=== PATIENT | female | born 1960 | race Two or more races ===

== ENCOUNTER 2017-02-07 23:38 | Inpatient (IN) | payer MEDICAID ==
[~2017-02-07] VITALS: Ht 154.9 cm; Wt 71.2 kg
[2017-02-08] VITALS (7 sets, daily range): BP systolic 118–156; BP diastolic 56–74
--- NOTE | 2017-02-08 00:18 | Emergency Room Report ---
History of Present Illness General Chief Complaint: Chest Pain Source: Patient Present Illness HPI 56 yo female with pmhx of HTN, DM, p/w chest pain for 2 hours. Chest pain started while resting. Localized to substernal area, no radiation to back or other areas, sharp in nature, gradual in onset, 1 episode. + SOB. Denies palpitations, diaphoresis, n/v. This is the first occurrence of chest pain. Denies fever, chills, cough, abd pain. Denies trauma. Last stress test was a few years ago which was negative. Patient has never had a cardiac catheterization. Denies smoking, no family history of cardiac disease at a young age. Patient was given 162 mg of aspirin by EMS Allergies: Coded Allergies: No Known Allergies (Unverified , 02/07/17) Patient History Past Medical History: see triage record, DM, HTN Past Surgical History: none Pertinent Family History: none Last Menstrual Period: 2001 Now: No : 6 Para: 6 Reviewed Nursing Documentation: PMH: Agreed, PSxH: Agreed Nursing Documentation-PMH Hx Hypertension: Yes Hx Diabetes: Yes Review of Systems All Other Systems: negative except mentioned in HPI Physical Exam Vital Signs Date Time Temp Pulse Resp B/P (MAP) Pulse Ox O2 Delivery O2 Flow Rate FiO2 02/07/17 23:47 98.4 93 18 171/75 97 Room Air Medical Decision Making Diagnostic Impression: Primary Impression: Acute coronary syndrome ER Course 56 yo F with p/w CP DDX: ACS vs. CHF vs. pneumonia vs. gastritis/GERD vs. pneumothorax PE on differential however at this time there are other more likely diagnoses. Plan: IV access, obtain labs including troponin, EKG, CXR ASA 162 (already given 162 by ems) Anticipate admission ER course: Patient was treated with ASA. Labs- Troponin * Patient has remained on a monitor, HD stable, chest pain improved. Disposition: Patient requires admission for chest pain. HEART Score: *, indicating increased risk of major acute cardiac event. Patient requires admission for further workup, serial troponin, and possible stress test /cath inpatient. Please note that this Emergency Department Report was dictated using [employer] end application developer technology software, occasionally this can lead to erroneous entry secondary to interpretation by the dictation equipment. Laboratory Tests Test 02/08/17 00:05 White Blood Count 9.4 K/UL (4.8-10.8) Red Blood Count 3.90 M/UL (4.20-5.40) L Hemoglobin 12.3 G/DL (12.0-16.0) Hematocrit 35.6 % (37.0-47.0) L Mean Corpuscular Volume 91 FL (80-99) Mean Corpuscular Hemoglobin 31.5 PG (27.0-31.0) H Mean Corpuscular Hemoglobin Concent 34.5 G/DL (32.0-36.0) Red Cell Distribution Width 11.4 % (11.6-14.8) L Platelet Count 237 K/UL (150-450) Mean Platelet Volume 7.7 FL (6.5-10.1) Neutrophils (%) (Auto) 41.5 % (45.0-75.0) L Lymphocytes (%) (Auto) 45.2 % (20.0-45.0) H Monocytes (%) (Auto) 9.7 % (1.0-10.0) Eosinophils (%) (Auto) 2.5 % (0.0-3.0) Basophils (%) (Auto) 1.2 % (0.0-2.0) Sodium Level 132 mEQ/L (135-145) L Potassium Level 3.8 mEQ/L (3.4-4.9) Chloride Level 99 mEQ/L (98-107) Carbon Dioxide Level 18 mEQ/L (20-30) L Anion Gap 15 (5-15) Blood Urea Nitrogen 20 mg/dL (7-23) Creatinine 1.9 mg/dL (0.5-0.9) H Estimate Glomerular Filtration Rate 27.2 mL/min (>60) Glucose Level 214 mg/dL (74-106) H Calcium Level 9.2 mg/dL (8.6-10.2) Total Bilirubin < 0.2 mg/dL (0.0-1.2) Aspartate Amino Transferase (AST) 21 U/L (5-40) Alanine Aminotransferase (ALT) 13 U/L (3-33) Alkaline Phosphatase 167 U/L (35-104) H Total Creatine Kinase 157 U/L (26-140) H Creatine Kinase MB 2.4 ng/mL (< 3.8) Creatine Kinase MB Relative Index 1.5 Troponin I < 0.30 ng/mL (<=0.30) Total Protein 7.6 g/dL (6.6-8.7) Albumin 4.3 g/dL (3.5-5.2) Globulin 3.3 g/dL Albumin/Globulin Ratio 1.3 (1.0-2.7) EKG Diagnostic Results Rate: normal Rhythm: NSR ST Segments: no acute changes ASA given to the pt in ED: Yes Rhythm Strip Diag. Results EP Interpretation: yes Rate: 82 Rhythm: NSR, no PVC's, no ectopy Chest X-Ray Diagnostic Results Chest X-Ray Diagnostic Results : Chest X-Ray Ordered: Yes # of Views/Limited/Complete: 1 View Indication: Chest Pain Interpretation: other - Not rule out left-sided pleural effusion due to poor inspiratory effort Impression: Other - cannot rule out L pleural effusion Interpreting ER Provider: Electronically signed by Reena Singletary MD Last Vital Signs Date Time Temp Pulse Resp B/P (MAP) Pulse Ox O2 Delivery O2 Flow Rate FiO2 02/07/17 23:47 98.4 93 18 171/75 97 Room Air Disposition: ADMITTED INPATIENT Condition: Serious Referrals: NON PHYSICIAN (PCP) Reena Singletary M.D. Feb 08, 2017 00:18
[2017-02-08] MEDS ORDERED: Aspirin Baby 81mg ORAL ONE (00:30)
[2017-02-08 00:38] LABS: BASOPHILS % (AUTO) 1.2 % (0.0-2.0); EOSINOPHILS % (AUTO) 2.5 % (0.0-3.0); LYMPHOCYTES % (AUTO) 45.2 % (20.0-45.0); MEAN CORPUSCULAR HEMOGLOBIN 31.5 PG (27.0-31.0); MEAN CORPUSCULAR HGB CONC 34.5 G/DL (32.0-36.0); MEAN CORPUSCULAR VOLUME 91 FL (80-99); MEAN PLATELET VOLUME 7.7 FL (6.5-10.1); MONOCYTES % (AUTO) 9.7 % (1.0-10.0); NEUTROPHILS % (AUTO) 41.5 % (45.0-75.0); PLATELET COUNT 237 K/UL (150-450); RED CELL DISTRIBUTION WIDTH 11.4 % (11.6-14.8); WHITE BLOOD COUNT 9.4 K/UL (4.8-10.8)
[2017-02-08 00:53] LABS: ALANINE AMINOTRANSFERASE 13 U/L (3-33); ALBUMIN/GLOBULIN RATIO 1.3 (1.0-2.7); ANION GAP 15 (5-15); ASPARTATE AMINO TRANSFERASE 21 U/L (5-40); CALCIUM 9.2 mg/dL (8.6-10.2); CARBON DIOXIDE 18 mEQ/L (20-30); CHLORIDE 99 mEQ/L (98-107); CREATININE 1.9 mg/dL (0.5-0.9); GLOMERULAR FILTRATION RATE 27.2 mL/min (>60); HEMOLYSIS 18; POTASSIUM 3.8 mEQ/L (3.4-4.9); SODIUM 132 mEQ/L (135-145); TOTAL PROTEIN 7.6 g/dL (6.6-8.7)
[2017-02-08 00:58] LABS: TROPONIN I < 0.30 ng/mL (<=0.30)
[2017-02-08 01:03] LABS: CKMB 2.4 ng/mL (< 3.8)
[2017-02-08] MEDS ORDERED: insulin (02:37)
[2017-02-08] MEDS ORDERED: blood pressure (02:38)
[2017-02-08] MEDS ORDERED: ATORVASTATIN CA10 MG ORAL (02:38)
[2017-02-08] MEDS ORDERED: Ketorolac 30mg Inj IV PRN (06:45)
[2017-02-08] MEDS ORDERED: DuoNeb 0.5-3(2.5)mg/3ml neb HHN PRN (06:45)
[2017-02-08] MEDS ORDERED: Miralax 17gm pkt ORAL PRN (06:45)
[2017-02-08] MEDS ORDERED: Morphine Sulfate 2mg/ml Inj IVP PRN (06:45)
[2017-02-08] MEDS ORDERED: Nitroglycerin Subl 0.4mg tab (Bottle Of 25) SL PRN (06:45)
[2017-02-08] MEDS ORDERED: Diltiazem 25mg/5ml IV PRN (06:45)
[2017-02-08] MEDS ORDERED: Enalaprilat 2.5mg/2ml Inj IV PRN (06:45)
[2017-02-08 07:41] LABS: TROPONIN I < 0.30 ng/mL (<=0.30)
[2017-02-08] MEDS ORDERED: Aspirin Baby 81mg ORAL SCH (09:00)
--- NOTE | 2017-02-08 10:43 | Consultation ---
History of Present Illness General Date patient seen: Feb 08, 2017 Chief Complaint: Chest Pain Referring physician: Dr Heredia Reason for Consultation: chest pain Present Illness HPI 56 yo female with pmhx of HTN, DM, p/w chest pain for 2 hours. Chest pain started while resting. Localized to substernal area, no radiation to back or other areas, sharp in nature, gradual in onset Last stress test was a few month ago which was negative at [facility] Allergies: Coded Allergies: No Known Allergies (Unverified , 02/07/17) Medication History Scheduled Atorvastatin Calcium* (Lipitor*), Unknown Dose ORAL BEDTIME, (Reported) Miscellaneous Medications [blood pressure], (Reported) [insulin], (Reported) Patient History Healthcare decision maker Resuscitation status Full Code Advanced Directive on File No Past Medical/Surgical History Past Medical/Surgical History: (1) Diabetes mellitus (2) HTN (hypertension) Review of Systems All Other Systems: negative except mentioned in HPI Physical Exam General Appearance: WD/WN, no apparent distress Lines, tubes and drains: peripheral, PICC HEENT: normocephalic, atraumatic Neck: non-tender, normal alignment Respiratory/Chest: chest wall non-tender, normal breath sounds Cardiovascular/Chest: normal peripheral pulses, normal rate Abdomen: normal bowel sounds, soft Genitourinary/Rectal: normal genital exam Last 24 Hour Vital Signs Date Time Temp Pulse Resp B/P (MAP) Pulse Ox O2 Delivery O2 Flow Rate FiO2 02/08/17 08:00 97.9 82 20 156/69 100 Room Air 02/08/17 08:00 74 02/08/17 04:00 97.9 78 20 143/67 100 Room Air 78 02/08/17 03:59 75 02/08/17 03:01 98.4 73 18 137/56 100 Room Air 73 02/08/17 02:19 98.4 73 18 137/56 100 Room Air 73 02/08/17 00:15 90 19 Room Air 02/08/17 00:04 98.4 90 19 147/59 100 Room Air 02/07/17 23:47 98.4 93 18 171/75 97 Room Air Laboratory Tests Test 02/08/17 00:05 02/08/17 07:00 White Blood Count 9.4 K/UL (4.8-10.8) Red Blood Count 3.90 M/UL (4.20-5.40) L Hemoglobin 12.3 G/DL (12.0-16.0) Hematocrit 35.6 % (37.0-47.0) L Mean Corpuscular Volume 91 FL (80-99) Mean Corpuscular Hemoglobin 31.5 PG (27.0-31.0) H Mean Corpuscular Hemoglobin Concent 34.5 G/DL (32.0-36.0) Red Cell Distribution Width 11.4 % (11.6-14.8) L Platelet Count 237 K/UL (150-450) Mean Platelet Volume 7.7 FL (6.5-10.1) Neutrophils (%) (Auto) 41.5 % (45.0-75.0) L Lymphocytes (%) (Auto) 45.2 % (20.0-45.0) H Monocytes (%) (Auto) 9.7 % (1.0-10.0) Eosinophils (%) (Auto) 2.5 % (0.0-3.0) Basophils (%) (Auto) 1.2 % (0.0-2.0) Sodium Level 132 mEQ/L (135-145) L Potassium Level 3.8 mEQ/L (3.4-4.9) Chloride Level 99 mEQ/L (98-107) Carbon Dioxide Level 18 mEQ/L (20-30) L Anion Gap 15 (5-15) Blood Urea Nitrogen 20 mg/dL (7-23) Creatinine 1.9 mg/dL (0.5-0.9) H Estimat Glomerular Filtration Rate 27.2 mL/min (>60) Glucose Level 214 mg/dL (74-106) H Calcium Level 9.2 mg/dL (8.6-10.2) Total Bilirubin < 0.2 mg/dL (0.0-1.2) Aspartate Amino Transf (AST/SGOT) 21 U/L (5-40) Alanine Aminotransferase (ALT/SGPT) 13 U/L (3-33) Alkaline Phosphatase 167 U/L (35-104) H Total Creatine Kinase 157 U/L (26-140) H Creatine Kinase MB 2.4 ng/mL (< 3.8) Creatine Kinase MB Relative Index 1.5 Troponin I < 0.30 ng/mL (<=0.30) < 0.30 ng/mL (<=0.30) Total Protein 7.6 g/dL (6.6-8.7) Albumin 4.3 g/dL (3.5-5.2) Globulin 3.3 g/dL Albumin/Globulin Ratio 1.3 (1.0-2.7) Height (Feet): 5 Height (Inches): 1.00 Weight (Pounds): 157 Medications Current Medications Medications (Trade) Dose Ordered Sig/Shannan Route PRN Reason Start Time Stop Time Status Last Admin Dose Admin Acetaminophen (Tylenol) 650 mg Q4H PRN ORAL FEVER 02/08/17 06:45 03/10/17 06:44 Albuterol/ Ipratropium (DuoNeb 0.5-3(2.5)mg/3ml) 3 ml EVERY 4 HOURS PRN HHN Shortness of Breath 02/08/17 06:45 02/13/17 06:44 Aspirin (ASA) 162 mg DAILY ORAL 02/08/17 09:00 03/10/17 08:59 02/08/17 09:06 Dextrose (Dextrose 50%) STAT PRN IV Hypoglycemia 02/08/17 06:45 03/10/17 06:44 Diltiazem HCl (Cardizem) 10 mg EVERY HOUR PRN IV heart rate more than 120, 02/08/17 06:45 03/10/17 06:44 Enalaprilat (Vasotec) 2.5 mg EVERY 6 HOURS PRN IV sbp more than 160 02/08/17 06:45 03/10/17 06:44 Heparin Sodium (Porcine) (Heparin 5000 units/ml) 5,000 units EVERY 8 HOURS SUBQ 02/08/17 14:00 03/10/17 13:59 Insulin Aspart (NovoLOG) BEFORE MEALS AND HS SUBQ 02/08/17 11:30 03/10/17 11:29 Morphine Sulfate (Morphine Sulfate) 2 mg EVERY 4 HOURS PRN IVP severe Pain (Pain Scale 7-10) 02/08/17 06:45 02/15/17 06:44 Nitroglycerin (Ntg) 0.4 mg q 5 mins PRN SL Prn Chest Pain 02/08/17 06:45 03/10/17 06:44 Ondansetron HCl (Zofran) 4 mg Q6H PRN IVP Nausea & Vomiting 02/08/17 06:45 03/10/17 06:44 Pantoprazole (Protonix) 40 mg DAILY ORAL 02/08/17 09:00 03/10/17 08:59 02/08/17 09:06 Polyethylene Glycol (Miralax) 17 gm DAILYPRN PRN ORAL Constipation 02/08/17 06:45 03/10/17 06:44 Temazepam (Restoril) 15 mg HSPRN PRN ORAL Insomnia 02/08/17 06:45 02/15/17 06:44 Assessment/Plan Problem List: (1) ACS (acute coronary syndrome) ICD Codes: I24.9 - Acute ischemic heart disease, unspecified SNOMED: 975948478 (2) HTN (hypertension) ICD Codes: I10 - Essential (primary) hypertension SNOMED: 22150107 (3) Diabetes mellitus ICD Codes: E11.9 - Type 2 diabetes mellitus without complications SNOMED: 99310835 Assessment/Plan serial ekg, troponin get reports from [facility] symptomatic treatment dvt prophylaxis Sliding scale. SONALI JOHNSON Feb 08, 2017 10:43
--- NOTE | 2017-02-08 11:02 | Diagnostic Imaging Report ---
Indication: Chest pain Comparison: None A single view chest radiograph was obtained. Findings: No definite infiltrate or pulmonary vascular congestion identified. Lung volumes are low limiting evaluation. The heart is enlarged. The aorta is mildly enlarged consistent with atherosclerotic vascular disease. The bones are osteopenic. Impression: No acute disease
[2017-02-08] MEDS: NovoLOG Insulin Flexpen SUBQ SCH ×3 (11:30→21:49)
[2017-02-08] MEDS: Heparin 5000 units/ml inj SUBQ SCH ×2 (14:13→22:00)
--- NOTE | 2017-02-08 15:22 | Diagnostic Imaging Report ---
APPROVED REPORT CPT Code: 13877 Present Symptoms Lower Extremity Pain: Bilateral BILATERAL: Imaging reveals a patent deep venous system bilaterally. There is no evidence of thrombus within the femoral, popliteal or tibial segments. The greater saphenous veins are also within normal limits. Doppler indicates normal spontaneous flow within these segments.
--- NOTE | 2017-02-08 17:30 | Consultation ---
History of Present Illness General Chief Complaint: Chest Pain Referring physician: Dr Heredia Reason for Consultation: Hyponatremia, JEREL Present Illness HPI Ms Tico devries a 56 yo female, English speaking only with pmhx significant for HTN and DM, who presented with substernal chest pain, non radiating x 2 hours. Chest pain started at rest. Pain is sharp in nature, gradual in onset, 1 episode. + SOB. Denies palpitations, diaphoresis, n/v. denies previous episode. Denies fever, chills, cough, abd pain. Denies trauma. Allergies: Coded Allergies: No Known Allergies (Unverified , 02/07/17) Medication History Scheduled Atorvastatin Calcium* (Lipitor*), Unknown Dose ORAL BEDTIME, (Reported) Miscellaneous Medications [blood pressure], (Reported) [insulin], (Reported) Patient History Limited by: language barrier History Provided By: Patient Healthcare decision maker Resuscitation status Full Code Advanced Directive on File No Past Medical/Surgical History Past Medical/Surgical History: (1) HTN (hypertension) (2) Diabetes mellitus Social History Social History: (1) Non-smoker (2) No history of alcohol use (3) No illicit drug use Review of Systems All Other Systems: negative except mentioned in HPI Physical Exam General Appearance: no apparent distress, alert Lines, tubes and drains: peripheral HEENT: normocephalic, atraumatic Neck: non-tender, normal alignment, supple, normal inspection Respiratory/Chest: lungs clear, normal breath sounds, no respiratory distress Breasts: no masses Cardiovascular/Chest: normal rate, regular rhythm Abdomen: non tender, soft Extremities: normal range of motion, non-tender, normal inspection Skin Exam: normal pigmentation, warm/dry Neurologic: no motor/sensory deficits, alert, oriented x 3, responsive, normal mood/affect Last 24 Hour Vital Signs Date Time Temp Pulse Resp B/P (MAP) Pulse Ox O2 Delivery O2 Flow Rate FiO2 02/08/17 16:00 97.7 66 18 118/64 97 Room Air 02/08/17 12:00 97.9 71 18 118/60 98 Room Air 02/08/17 12:00 69 02/08/17 08:00 97.9 82 20 156/69 100 Room Air 02/08/17 08:00 74 02/08/17 04:00 97.9 78 20 143/67 100 Room Air 78 02/08/17 03:59 75 02/08/17 03:01 98.4 73 18 137/56 100 Room Air 73 02/08/17 02:19 98.4 73 18 137/56 100 Room Air 73 02/08/17 00:15 90 19 Room Air 02/08/17 00:04 98.4 90 19 147/59 100 Room Air 02/07/17 23:47 98.4 93 18 171/75 97 Room Air Laboratory Tests Test 02/08/17 00:05 02/08/17 07:00 White Blood Count 9.4 K/UL (4.8-10.8) Red Blood Count 3.90 M/UL (4.20-5.40) L Hemoglobin 12.3 G/DL (12.0-16.0) Hematocrit 35.6 % (37.0-47.0) L Mean Corpuscular Volume 91 FL (80-99) Mean Corpuscular Hemoglobin 31.5 PG (27.0-31.0) H Mean Corpuscular Hemoglobin Concent 34.5 G/DL (32.0-36.0) Red Cell Distribution Width 11.4 % (11.6-14.8) L Platelet Count 237 K/UL (150-450) Mean Platelet Volume 7.7 FL (6.5-10.1) Neutrophils (%) (Auto) 41.5 % (45.0-75.0) L Lymphocytes (%) (Auto) 45.2 % (20.0-45.0) H Monocytes (%) (Auto) 9.7 % (1.0-10.0) Eosinophils (%) (Auto) 2.5 % (0.0-3.0) Basophils (%) (Auto) 1.2 % (0.0-2.0) Sodium Level 132 mEQ/L (135-145) L Potassium Level 3.8 mEQ/L (3.4-4.9) Chloride Level 99 mEQ/L (98-107) Carbon Dioxide Level 18 mEQ/L (20-30) L Anion Gap 15 (5-15) Blood Urea Nitrogen 20 mg/dL (7-23) Creatinine 1.9 mg/dL (0.5-0.9) H Estimat Glomerular Filtration Rate 27.2 mL/min (>60) Glucose Level 214 mg/dL (74-106) H Calcium Level 9.2 mg/dL (8.6-10.2) Total Bilirubin < 0.2 mg/dL (0.0-1.2) Aspartate Amino Transf (AST/SGOT) 21 U/L (5-40) Alanine Aminotransferase (ALT/SGPT) 13 U/L (3-33) Alkaline Phosphatase 167 U/L (35-104) H Total Creatine Kinase 157 U/L (26-140) H Creatine Kinase MB 2.4 ng/mL (< 3.8) Creatine Kinase MB Relative Index 1.5 Troponin I < 0.30 ng/mL (<=0.30) < 0.30 ng/mL (<=0.30) Total Protein 7.6 g/dL (6.6-8.7) Albumin 4.3 g/dL (3.5-5.2) Globulin 3.3 g/dL Albumin/Globulin Ratio 1.3 (1.0-2.7) Height (Feet): 5 Height (Inches): 1.00 Weight (Pounds): 157 Medications Current Medications Medications (Trade) Dose Ordered Sig/Shannan Route PRN Reason Start Time Stop Time Status Last Admin Dose Admin Acetaminophen (Tylenol) 650 mg Q4H PRN ORAL FEVER 02/08/17 06:45 03/10/17 06:44 Albuterol/ Ipratropium (DuoNeb 0.5-3(2.5)mg/3ml) 3 ml EVERY 4 HOURS PRN HHN Shortness of Breath 02/08/17 06:45 02/13/17 06:44 Aspirin (ASA) 162 mg DAILY ORAL 02/08/17 09:00 03/10/17 08:59 02/08/17 09:06 Dextrose (Dextrose 50%) STAT PRN IV Hypoglycemia 02/08/17 06:45 03/10/17 06:44 Diltiazem HCl (Cardizem) 10 mg EVERY HOUR PRN IV heart rate more than 120, 02/08/17 06:45 03/10/17 06:44 Enalaprilat (Vasotec) 2.5 mg EVERY 6 HOURS PRN IV sbp more than 160 02/08/17 06:45 03/10/17 06:44 Heparin Sodium (Porcine) (Heparin 5000 units/ml) 5,000 units EVERY 8 HOURS SUBQ 8/30/17 14:00 03/10/17 13:59 02/08/17 14:13 Insulin Aspart (NovoLOG) BEFORE MEALS AND HS SUBQ 02/08/17 11:30 03/10/17 11:29 02/08/17 16:46 Morphine Sulfate (Morphine Sulfate) 2 mg EVERY 4 HOURS PRN IVP severe Pain (Pain Scale 7-10) 02/08/17 06:45 02/15/17 06:44 Nitroglycerin (Ntg) 0.4 mg q 5 mins PRN SL Prn Chest Pain 02/08/17 06:45 03/10/17 06:44 Ondansetron HCl (Zofran) 4 mg Q6H PRN IVP Nausea & Vomiting 02/08/17 06:45 03/10/17 06:44 Pantoprazole (Protonix) 40 mg DAILY ORAL 02/08/17 09:00 03/10/17 08:59 02/08/17 09:06 Polyethylene Glycol (Miralax) 17 gm DAILYPRN PRN ORAL Constipation 02/08/17 06:45 03/10/17 06:44 Temazepam (Restoril) 15 mg HSPRN PRN ORAL Insomnia 02/08/17 06:45 02/15/17 06:44 Assessment/Plan Problem List: (1) Chest pain ICD Codes: R07.9 - Chest pain, unspecified SNOMED: 11446196 (2) Acute coronary syndrome ICD Codes: I24.9 - Acute ischemic heart disease, unspecified SNOMED: 957955672 (3) Diabetes mellitus ICD Codes: E11.9 - Type 2 diabetes mellitus without complications SNOMED: 24340809 (4) HTN (hypertension) ICD Codes: I10 - Essential (primary) hypertension SNOMED: 15638110 Assessment/Plan Monitor lytes- correct PRN Renally dose meds, avoid nephrotoxins Pain med as needed Continue strict glycemic control cardio consult pending DVT prophylaxis Trop neg Will follow Amy Fulton N.P. Feb 08, 2017 17:30
--- NOTE | 2017-02-08 19:10 | Cardiology Progress Note ---
Assessment/Plan Assessment/Plan [id number] Objective Last 24 Hour Vital Signs Date Time Temp Pulse Resp B/P (MAP) Pulse Ox O2 Delivery O2 Flow Rate FiO2 02/08/17 16:00 67 02/08/17 16:00 97.7 66 18 118/64 97 Room Air 02/08/17 12:00 97.9 71 18 118/60 98 Room Air 02/08/17 12:00 69 02/08/17 08:00 97.9 82 20 156/69 100 Room Air 02/08/17 08:00 74 02/08/17 04:00 97.9 78 20 143/67 100 Room Air 78 02/08/17 03:59 75 02/08/17 03:01 98.4 73 18 137/56 100 Room Air 73 02/08/17 02:19 98.4 73 18 137/56 100 Room Air 73 02/08/17 00:15 90 19 Room Air 02/08/17 00:04 98.4 90 19 147/59 100 Room Air 02/07/17 23:47 98.4 93 18 171/75 97 Room Air Intake and Output 02/08/17 02/09/17 19:00 07:00 Intake Total 500 ml Balance 500 ml Intake Oral 500 ml # Voids 4 Laboratory Tests Test 02/08/17 00:05 02/08/17 07:00 White Blood Count 9.4 K/UL (4.8-10.8) Red Blood Count 3.90 M/UL (4.20-5.40) L Hemoglobin 12.3 G/DL (12.0-16.0) Hematocrit 35.6 % (37.0-47.0) L Mean Corpuscular Volume 91 FL (80-99) Mean Corpuscular Hemoglobin 31.5 PG (27.0-31.0) H Mean Corpuscular Hemoglobin Concent 34.5 G/DL (32.0-36.0) Red Cell Distribution Width 11.4 % (11.6-14.8) L Platelet Count 237 K/UL (150-450) Mean Platelet Volume 7.7 FL (6.5-10.1) Neutrophils (%) (Auto) 41.5 % (45.0-75.0) L Lymphocytes (%) (Auto) 45.2 % (20.0-45.0) H Monocytes (%) (Auto) 9.7 % (1.0-10.0) Eosinophils (%) (Auto) 2.5 % (0.0-3.0) Basophils (%) (Auto) 1.2 % (0.0-2.0) Sodium Level 132 mEQ/L (135-145) L Potassium Level 3.8 mEQ/L (3.4-4.9) Chloride Level 99 mEQ/L (98-107) Carbon Dioxide Level 18 mEQ/L (20-30) L Anion Gap 15 (5-15) Blood Urea Nitrogen 20 mg/dL (7-23) Creatinine 1.9 mg/dL (0.5-0.9) H Estimat Glomerular Filtration Rate 27.2 mL/min (>60) Glucose Level 214 mg/dL (74-106) H Calcium Level 9.2 mg/dL (8.6-10.2) Total Bilirubin < 0.2 mg/dL (0.0-1.2) Aspartate Amino Transf (AST/SGOT) 21 U/L (5-40) Alanine Aminotransferase (ALT/SGPT) 13 U/L (3-33) Alkaline Phosphatase 167 U/L (35-104) H Total Creatine Kinase 157 U/L (26-140) H Creatine Kinase MB 2.4 ng/mL (< 3.8) Creatine Kinase MB Relative Index 1.5 Troponin I < 0.30 ng/mL (<=0.30) < 0.30 ng/mL (<=0.30) Total Protein 7.6 g/dL (6.6-8.7) Albumin 4.3 g/dL (3.5-5.2) Globulin 3.3 g/dL Albumin/Globulin Ratio 1.3 (1.0-2.7) MALISSA WOOD Feb 08, 2017 19:10
[2017-02-08 20:32] LABS: TROPONIN I < 0.30 ng/mL (<=0.30)
--- NOTE | 2017-02-09 08:45 | History and Physical Report ---
DATE OF ADMISSION: 02/08/2017 TIME OF EVALUATION: At 1 p.m. CONSULTANTS: 1. Ashwini Alvarez M.D. 2. Boston Cash M.D. CHIEF COMPLAINT: Chest pain. BRIEF HISTORY: This is a 56-year-old female, who lives at home, presented with substernal chest pain x2 minutes. No loss of consciousness. No shortness of breath. The patient is slightly nauseous, quality was pressure like. The patient came to [facility], diagnosed as above. Admitted to [facility] for further care. Currently, calm in bed. No complaints. Eating. Slight chest pain and slight short of breath. No nausea, vomiting, or diarrhea. PAST MEDICAL HISTORY: Diabetes, hypertension, and hyper cholesterol. PAST SURGICAL HISTORY: None. MEDICATIONS: Heparin, NovoLog, aspirin, Protonix, DuoNeb, nitroglycerin, Tylenol, morphine, MiraLAX, Zofran, and Restoril. ALLERGIES: Denies. SOCIAL HISTORY: No smoking. No alcohol. No intravenous drug abuse. FAMILY HISTORY: Noncontributory. PHYSICAL EXAMINATION: GENERAL: Calm in bed, oriented x3, in no acute distress. VITAL SIGNS: Temperature is 97 degrees, pulse 71, respiratory rate 18, and blood pressure 118/60. CARDIOVASCULAR: No murmurs. LUNGS: Distant and clear. ABDOMEN: Bowel sounds are positive. Nontender and nondistended. EXTREMITIES: No cyanosis, clubbing, or edema. NEUROLOGICAL: The patient moves all extremities, slightly weak. LABORATORY DATA: Lab exam shows CBC is normal. BMP shows sodium 132, bicarbonate 18, creatinine 1.9, and glucose 213. ASSESSMENT: 1. Chest pain. 2. Diabetes. 3. Hypertension. 4. Hypercholesterol. PLAN: Blood pressure, blood sugar, and pain control. Dietary followup. Cardiology, Pulmonary, and Nephrology to follow. IV fluids. CBC and BMP . Dwayne Heredia D.O. DR: CRISSY JOB#: [id number] CC:
--- NOTE | 2017-02-09 09:01 | Consultation ---
DATE OF CONSULTATION: 02/08/2017 CARDIOLOGY CONSULTATION CONSULTING PHYSICIAN: Boston Cash M.D. REFERRING PHYSICIAN: Ashwini Alvarez M.D. REASON FOR REFERRAL: Chest pain. HISTORY OF PRESENT ILLNESS: This is a middle-aged 56-year-old female who has had a history of chest pains for approximately one year, described as sharp sensation, starts in the right side of the sternum, lasted maybe for one hour or so and goes away and comes back some other time. The pains occur once a week and she has noticed that when the pain comes on, it gets worse with taking a deep breath or coughing as well as possibly at times walking, but not all the time. There is radiation of pain to the back and there was no associated shortness of breath. No associated palpitation, dizziness, or lightheadedness with shortness of breath. She has not experienced any pain at this time. She has had several hospitalizations including [facility] and [facility]. Most recently, she has had a stress test at [facility] as patient went to clinic of [facility] approximately in October 2016 for the same pain and according to the patient's daughter, the stress test apparently came back normal. She has never throughout these hospitalizations, had an angiogram or angiogram according to her daughter. She is diabetic, hypertensive, hypercholesteremia, and heart attack. No cancer. No stroke. No hepatitis, tuberculosis, asthma, or emphysema. No ulcers. No kidney, liver problems, or thyroid problems. No anemia or arthritis. ALLERGIES: She is not allergic to any medications. SOCIAL HISTORY: She does not smoke or drink alcoholic beverages. REVIEW OF SYSTEMS: She had some nausea yesterday, otherwise negative. negative. PHYSICAL EXAMINATION: GENERAL: Shows to be a middle-aged female, in no respiratory distress. NECK: Supple. No jugular venous distention. No abdominojugular reflux noted. LUNGS: Clear to auscultation and percussion. CHEST: Chest wall is nontender to palpation. CARDIAC: S1 is normal. S2 is normal. Regular rate and rhythm. No heaves. No thrills. No gallops. No rubs are noted. ABDOMEN: Soft and nontender. Positive bowel sounds. EXTREMITIES: There is no clubbing, cyanosis, or edema. LABORATORY AND DIAGNOSTIC DATA: White count 9.4, hemoglobin 12.3, and platelet count of 237,000. Sodium is 132, potassium 3.8, chloride 99, bicarbonate of 18, BUN of 20, creatinine 1.9, and glucose of 214. Alkaline phosphatase of 167. Two sets of cardiac enzymes are negative less than 0.03. Albumin of 4.3. Her electrocardiogram shows a normal sinus rhythm, no ST or T-wave abnormalities are noted. The telemetry shows sinus rhythm. Echocardiogram, preliminary report shows normal left ventricular systolic function, some left ventricular hypertrophy. Chest x-ray was performed today showed no acute disease processes, and a venous duplex was performed today that showed no evidence of deep venous thrombosis. ASSESSMENT: 1. Chronic recurrent intermittent chest pains with negative several prior workups. 2. Diabetes. 3. Hypertension. 4. Hyperlipidemia. PLAN: Dr. Alvarez, this patient was seen in cardiac consultation. The patient's pain has been going on for approximately one year. She has had several hospitalizations including hospitalization in October. Her cardiac enzymes are negative, at least two sets. The third set will be repeated. EKG is unremarkable despite the fact that she has had this chest pain for long time. Nevertheless, third set of cardiac enzyme will be performed. If the third set is negative, she may be discharged home. She will follow up with her primary care physician as outpatient for further evaluation of this pain. Boston Cash M.D. DR: Fe JOB#: [id number] CC:
--- NOTE | 2017-02-09 16:33 | Discharge Summary ---
Discharge Summary Hospital Course Date of Admission Feb 08, 2017 at 01:26 Date of Discharge Feb 08, 2017 at 22:00 Admitting Diagnosis ACS HPI Vee Doshi is a 56 year old female who was admitted on Feb 08, 2017 at 01: 26 for Acute Coronary Syndrome Hospital Course [id number] Discharge Discharge Disposition Patient was discharged to Home (01) Discharge Diagnoses: Yesenia Mercer NP Feb 09, 2017 16:33
--- NOTE | 2017-02-10 00:15 | Discharge Summary 2 SIG ---
DATE OF ADMISSION: 02/08/2017 DATE OF DISCHARGE: 02/08/2017 CONSULTANTS: 1. Boston Cash M.D. 2. Ashwini Alvarez M.D. 3. Boris Palacios M.D. BRIEF HOSPITAL COURSE: The patient is a 56-year-old female, who lives at home, presented to ED with substernal chest pain, which is sharp in nature and gradual on onset, accompanied with shortness of breath. She was given aspirin by EMS. Troponin was negative. EKG was in normal sinus rhythm with no acute changes and chest x-ray showed poor inspiratory effort, cannot rule out left pleural effusion. Because of her risk factors, she was admitted for cardiac monitoring. She was recently admitted to [facility] and underwent stress test, unclear of results. She was admitted to telemetry. Cardiac enzymes were monitored. EKG showed no ST to T-wave abnormalities. Venous duplex was negative for DVT. Renal parameters were monitored. All troponins have been negative. Due to negative workup, the patient was eventually discharged home. FINAL DIAGNOSES: 1. Chronic recurrent intermittent chest pain with negative prior workups. 2. Diabetes. 3. Hypertension. 4. Hyperlipidemia. DISPOSITION: The patient was discharged home. DISCHARGE MEDICATIONS: Refer to medication list. FOLLOWUP: The patient was advised to follow up with PMD. ACTIVITY: As tolerated. Dwayne Heredia D.O. I have been assigned to dictate discharge summary on this account and I was not involved in the patient's management. Yesenia Mercer N.P. DR: Dwayne JOB#: [id number] CC:
--- NOTE | 2017-02-11 12:24 | Cardiology Report ---
APPROVED REPORT EXAM: Two-dimensional and M-mode echocardiogram with Doppler and color Doppler. INDICATION LV function M-Mode DIMENSIONS IVSd1.3 (0.7-1.1cm)Left Atrium (MM)3.5 (1.6-4.0cm) LVDd4.9 (3.5-5.6cm)Aortic Root3.1 (2.0-3.7cm) PWd0.7 (0.7-1.1cm)Aortic Cusp Exc.1.7 (1.5-2.0cm) IVSs1.5 cm LVDs3.7 (2.5-4.0cm) PWs1.2 cm Normal left ventricular chamber size, systolic function and wall motion. Left ventricular ejection fraction estimated to be 55-60 %. Mild to moderate left ventricular hypertrophy by 2-D. No evidence of pericardial effusion. All other cardiac chamber sizes are within normal limits. Mild focal aortic valve sclerosis with adequate cusp excursion. Mildly thickened mitral valve leaflets with normal excursion. Mitral annulus and aortic root calcification. Pulmonic valve not well visualized. Normal tricuspid valve structure. IVC at normal size with physiologic collapse. A color flow and spectral Doppler study was performed and revealed: Trace aortic regurgitation. Trace mitral regurgitation. Mitral inflow velocities indicates possible pseudo normalization pattern implying moderately elevated left atrial pressure (Grade II ). Trace tricuspid regurgitation. Tricuspid systolic velocities suggests peak right ventricular systolic pressure of 18 mmHg.
--- NOTE | 2017-02-11 12:48 | Cardiology Report ---
APPROVED REPORT EKG Measurement Heart [id number] Normal sinus rhythm Normal ECG
== END 2017-02-08 22:00 | disposition home or self-care (01) | DRG 203 ==
LOC: EMR 23:59 → 2W 02-08 01:26 → EDBEDREQ 02-08 01:33
DX: R07.89 Other chest pain (principal); I10 Essential (primary) hypertension; E11.9 Type 2 diabetes mellitus without complications; Z79.4 Long term (current) use of insulin; E78.00 Pure hypercholesterolemia, unspecified; Z79.82 Long term (current) use of aspirin
CPT/HCPCS: 36415; 71010; 80053; 82550; 82553; 82962; 84484; 85025; 93005; 93306; 93970; 94664; 99285; J1815

== ENCOUNTER 2018-08-31 21:20 | Emergency (ER) | payer MEDICAID ==
[~2018-08-31] VITALS: Ht 147.3 cm; Wt 72.6 kg
[~2018-08-31 21:20] MED LIST: ATORVASTATIN CA10 MG ORAL; blood pressure; insulin
--- NOTE | 2018-08-31 21:40 | NUR ---
ED Nurse Note: pt came to ed from home c/o chest pain 02/19 since monday. pt has history of diabete type 1. denies history of HTN
--- NOTE | 2018-08-31 21:44 | NUR ---
ED Nurse Note: *correction- PT DOES HAVE HISTORY OF HTN
[2018-08-31 21:45] VITALS: BP 151/67
[2018-08-31] MEDS ORDERED: ZITHROMAX250 MG ORAL (22:07)
--- NOTE | 2018-08-31 22:07 | Emergency Room Report ---
History of Present Illness General Chief Complaint: Upper Respiratory Illness Source: Patient, Family Member Present Illness HPI This is a 58-year-old female with history of high blood pressure. She presents with chief complaint of fever cough and chest congestion. Onset for last 5 days. Has some nausea and vomiting. Subjective fever. Cough is productive for sputum. No diarrhea. No abdominal pain. Daughter is coming down with the same. Inspiration causes coughing. Rest makes it better. Allergies: Coded Allergies: No Known Allergies (Unverified , 02/07/17) Patient History Past Medical History: see triage record, old chart reviewed, HTN Past Surgical History: other Pertinent Family History: none Social History: Denies: smoking Last Menstrual Period: 2 decades ago Now: No Immunizations: other Reviewed Nursing Documentation: PMH: Agreed; PSxH: Agreed Nursing Documentation-PMH Hx Cardiac Problems: Yes Hx Hypertension: Yes Hx Pacemaker: No Hx Asthma: No Hx Diabetes: Yes Hx Cancer: No Hx Gastrointestinal Problems: No Hx Neurological Problems: No Review of Systems Constitutional: Reports: fever Eye: Denies: eye pain, blurred vision ENT: Denies: ear pain, nose congestion, throat swelling Respiratory: Reports: cough, sputum Cardiovascular: Denies: chest pain, palpitations Gastrointestinal: Denies: abdominal pain, diarrhea, nausea, vomiting Musculoskeletal: Denies: back pain, joint pain Skin: Denies: rash Neurological: Denies: headache, numbness Endocrine: Denies: increased thirst, increased urine Hematologic/Lymphatic: Denies: easy bruising All Other Systems: negative except mentioned in HPI Physical Exam Vital Signs Date Time Temp Pulse Resp B/P (MAP) Pulse Ox O2 Delivery O2 Flow Rate FiO2 08/31/18 21:28 98.2 80 16 151/67 95 Room Air vitals with high blood pressure Sp02 EP Interpretation: reviewed, normal General Appearance: well appearing, no apparent distress, alert Head: normocephalic, atraumatic Eyes: bilateral eye PERRL, bilateral eye EOMI ENT: hearing grossly normal, normal pharynx Neck: full range of motion, supple, no meningismus Respiratory: chest non-tender, lungs clear, normal breath sounds Cardiovascular #1: regular rate, rhythm, no murmur Gastrointestinal: normal bowel sounds, non tender, no mass, no organomegaly, no bruit, non-distended Musculoskeletal: back normal, gait/station normal, normal range of motion Psychiatric: mood/affect normal Skin: warm/dry Medical Decision Making Diagnostic Impression: Primary Impression: Upper respiratory infection Qualified Codes: J06.9 - Acute upper respiratory infection, unspecified Additional Impression: HTN (hypertension) Qualified Codes: I10 - Essential (primary) hypertension ER Course Patient with upper rest or infection. Most likely viral in nature. Because of her age and risk factor, will put on antibiotics. No evidence of ACS, PE, dissection to name a few. Last Vital Signs Date Time Temp Pulse Resp B/P (MAP) Pulse Ox O2 Delivery O2 Flow Rate FiO2 08/31/18 21:45 80 16 Room Air 08/31/18 21:45 98.2 151/67 95 Status: improved Disposition: HOME, SELF-CARE Condition: Stable Scripts Azithromycin* (ZITHROMAX*) 250 Mg Tablet 250 MG ORAL DAILY, #6 TAB 0 Refills Take two tables once daily for 1 day, then one tablet once daily for 4 days. Prov: Jose Rodriguez MD 08/31/18 Patient Instructions: Upper Respiratory Infection, Adult Additional Instructions: Follow-up with your doctor in 7 days. Return if worse. Jose Rodriguez MD Aug 31, 2018 22:07
--- NOTE | 2018-08-31 22:15 | NUR ---
ER DISCHARGE NOTE: Patient is cleared to be discharged per ERMD, pt is aox4, on room air, with stable vital signs. pt was given dc and prescription instructions, pt was able to verbalize understanding, pt id band removed. pt is able to ambulate with steady gait. pt took all belongings. pt daughter at bedside
[2018-08-31 22:21] VITALS: BP 151/67
== END 2018-08-31 22:15 | disposition home or self-care (01) ==
LOC: EMR 21:49
DX: J06.9 Acute upper respiratory infection, unspecified (principal); I10 Essential (primary) hypertension; E11.9 Type 2 diabetes mellitus without complications
CPT/HCPCS: 99282

== ENCOUNTER 2019-05-02 20:14 | Emergency (ER) | payer MEDICAID ==
[~2019-05-02] VITALS: Ht 170.2 cm; Wt 81.6 kg
[~2019-05-02 20:14] MED LIST changes: +ZITHROMAX250 MG ORAL
--- NOTE | 2019-05-02 20:20 | NUR ---
ED Nurse Note: Patient walked into ED c/o flu like symptoms for the past 4 days, at time of arrival patient does not present with a fever. patient is alert and oriented x4, ambulatory with a steady gait, complains of a headache, rates her pain a 8/10 pain. will wait for further orders
[2019-05-02 20:25] VITALS: BP 122/76
[2019-05-02] MEDS ORDERED: Acetaminophen 500mg (ES) tab ORAL ONE (20:45)
--- NOTE | 2019-05-02 20:46 | Emergency Room Report ---
History of Present Illness General Chief Complaint: Flu Like Symptoms Source: Patient Present Illness HPI 58-year-old female history of hypertension, hyperlipidemia, presents with cough , congestion, feeling under the weather x4 days, no nausea no vomiting, she does endorse some chills but no fever, severity is mild, no known aggravating relieving factors symptoms have been constant patient presents for evaluation Allergies: Coded Allergies: No Known Allergies (Unverified , 02/07/17) Patient History Past Medical History: see triage record : 6 Para: 6 Reviewed Nursing Documentation: PMH: Agreed; PSxH: Agreed Nursing Documentation-PMH Hx Cardiac Problems: Yes - hypercholesteremia Hx Hypertension: Yes Hx Pacemaker: No Hx Asthma: No Hx Diabetes: Yes Hx Cancer: No Hx Gastrointestinal Problems: No Hx Neurological Problems: No Review of Systems All Other Systems: negative except mentioned in HPI Physical Exam Vital Signs Date Time Temp Pulse Resp B/P (MAP) Pulse Ox O2 Delivery O2 Flow Rate FiO2 05/02/19 20:18 98.4 79 18 122/76 (91) 97 Room Air Sp02 EP Interpretation: reviewed, normal General Appearance: well appearing, no apparent distress, alert Head: normocephalic, atraumatic Eyes: bilateral eye PERRL, bilateral eye EOMI ENT: TMs + canals normal, uvula midline, moist mucus membranes, nasal congestion, pharyngeal erythema, other - No exudates Neck: supple, thyroid normal, supple/symm/no masses Respiratory: lungs clear, no respiratory distress, no retraction, no accessory muscle use Cardiovascular #1: normal peripheral pulses, regular rate, rhythm, no edema, no gallop, no murmur Gastrointestinal: non tender, soft, no guarding, no rebound Musculoskeletal: normal inspection Neurologic: alert, oriented x3 Psychiatric: mood/affect normal Skin: no rash, warm/dry Medical Decision Making Diagnostic Impression: Primary Impression: Viral syndrome ER Course 58-year-old female most likely presents with viral syndrome, differential diagnosis includes pneumonia, upper respiratory infection, pharyngitis Patient with normal vitals, chest x-ray unremarkable no evidence of bacterial infection Disposition home with return precautions Chest X-Ray Diagnostic Results Chest X-Ray Diagnostic Results : Chest X-Ray Ordered: Yes # of Views/Limited/Complete: 1 View Indication: Other - cough EP Interpretation: Yes Interpretation: no consolidation, no effusion, no pneumothorax, no acute cardiopulmonary disease Impression: No acute disease Electronically Signed by: Sina Trivedi MD Last Vital Signs Date Time Temp Pulse Resp B/P (MAP) Pulse Ox O2 Delivery O2 Flow Rate FiO2 05/02/19 20:25 98.4 79 18 122/76 97 Room Air Disposition: HOME, SELF-CARE Condition: Stable Referrals: NON PHYSICIAN (PCP) [facility]if[facility]io Mcc[facility] Patient Instructions: Upper Respiratory Infection, Adult, [id number] Additional Instructions: The patient was provided with discharge instructions, notified to follow-up with a primary care doctor and or specialist in the next 24-48 hours, and to return to the ED if they have worsening of their symptoms. Please note that this report is being documented using [employer] technology. This can lead to erroneous entry secondary to incorrect interpretation by the dictating instrument. Sina Trivedi MD May 02, 2019 20:46
[2019-05-02 21:45] VITALS: BP 122/76
--- NOTE | 2019-05-02 21:45 | NUR ---
ER Nurse Note: Patient seen, treated, medically cleared to be discharged per ERMD. Discharge instructions and prescriptons given with repeat verbalization by pt. Instructed pt to follow up with primary care physican within one week. Pt is aox4, on room air, with stable vital signs. ID band removed. Pt ambulatory; left with all belongings.
--- NOTE | 2019-05-03 11:30 | Diagnostic Imaging Report ---
Indication: Cough Technique: One view of the chest Comparison: 02/08/2017 Findings: Slightly better inspiration currently. The heart is borderline enlarged. The lungs and pleural spaces are clear. Impression: Borderline cardiomegaly. No acute process
== END 2019-05-02 21:45 | disposition home or self-care (01) ==
LOC: EMR 20:28
DX: B34.9 Viral infection, unspecified (principal); E78.00 Pure hypercholesterolemia, unspecified; I10 Essential (primary) hypertension; E11.9 Type 2 diabetes mellitus without complications
CPT/HCPCS: 71045; J8540; Z7502; 99283